=== PATIENT | male | born 1940 | race Caucasian/White ===

== ENCOUNTER 2017-04-12 20:44 | Emergency (ER) | payer MEDICARE, BC ==
[~2017-04-12] VITALS: Ht 185.4 cm; Wt 108.9 kg
[2017-04-12] MEDS ORDERED: ATOR1TAB19 PO (21:02)
[2017-04-12] MEDS ORDERED: LOSA50TA20 PO (21:02)
[2017-04-12] MEDS ORDERED: FLOM5CAP PO (21:02)
[2017-04-12] MEDS ORDERED: BISO10TA PO (21:02)
[2017-04-12] MEDS ORDERED: ASPI81TA85 PO (21:02)
[2017-04-12] MEDS ORDERED: DUTA1CAP PO (21:02)
[2017-04-12] MEDS ORDERED: ASPIRIN 325 MG TAB PO ONE (21:30)
[2017-04-12] MEDS ORDERED: LEVALBUTEROL 1.25 MG/0.5 ML CONCENTRATE NEB INH SCH (21:45)
[2017-04-12] MEDS ORDERED: dexameTHASONE 20 MG/5 ML VIAL (J1100) IV ONE (21:45)
[2017-04-12 21:59] LABS: BASO # 0.1 K/mm3 (0.0-0.2); BASO % 1.2 % (0.0-1.0); EOS # 0.4 K/mm3 (0.0-0.50); EOS % 6.2 % (0.0-3.0); LARGE UNSTAINED CELL # 0.1 K/mm3 (0.0-0.4); LARGE UNSTAINED CELL % 1.6 % (0.0-4.0); LYMPH # 1.8 K/mm3 (1.5-4.5); LYMPH % 29.7 % (24.0-44.0); MEAN CORPUSCULAR HGB CONC 33.7 g/dl (32.0-36.5); MONO # 0.4 K/mm3 (0.0-0.8); MONO % 6.8 % (0.0-5.0); NEUTROPHILS # 3.2 K/mm3 (1.8-7.7); NEUTROPHILS % 54.5 % (36.0-66.0); PLATELET COUNT, AUTOMATED 208 k/mm3 (150-450); RED CELL DISTRIBUTION WIDTH 13.3 % (11.5-14.5); WHITE BLOOD COUNT 5.8 K/mm3 (4.0-10.0)
[2017-04-12 22:09] LABS: ANION GAP 6 MEQ/L (8-16); BLOOD UREA NITROGEN 17 MG/DL (7-18); CALCIUM LEVEL 9.1 MG/DL (8.8-10.2); CARBON DIOXIDE LEVEL 27 MEQ/L (21-32); CHLORIDE LEVEL 109 MEQ/L (98-107); CREATININE FOR GFR 0.92 MG/DL (0.70-1.30); GLOMERULAR FILTRATION RATE > 60.0 (>42); GLUCOSE, FASTING 141 MG/DL (83-110); INR 0.87; POTASSIUM SERUM 3.7 MEQ/L (3.5-5.1); SODIUM LEVEL 142 MEQ/L (136-145)
[2017-04-12] MEDS ORDERED: NS 500 ML IV ONE (22:15)
--- NOTE | 2017-04-12 22:30 | REPUSA ---
Clinical history: Pain, swelling. Findings: The right common femoral, superficial femoral, popliteal, and other deep venous structures compress normally and demonstrate normal color Doppler flow. Normal venous waveforms with augmentatio n are seen. Impression: No evidence of deep vein thrombosis in the right femoral popliteal venous system.
[2017-04-12] MEDS ORDERED: ISOVUE-370 76% 100ML VIAL (Q9967) As Ordered ONE (22:50)
--- NOTE | 2017-04-12 23:30 | REPUSA ---
CT angiogram of the chest Clinical statement: dyspnea. Technique: Multiple axial CT images were obtained from the thoracic inlet through the upper abdomen a fter a bolus administration of nonionic intravenous contrast. Coronal and sagittal reconstructions we re also obtained. Comparison: 05/19/2015. Findings: The pulmonary arteries are well-opacified with contrast, with no intraluminal filling defec ts to suggest embolism. The thoracic aorta is unremarkable. Thyroid gland is within normal limits. Th ere is moderate mediastinal thoracic lymphadenopathy. For example, a right carinal lymph node measure s 2.7 x 1.3 c. The dominant right hilar lymph node measures 2.8 x 2.0 cm. There are no pericardial or pleural effusions. The lungs are clear. Limited imaging of the upper abdomen is unremarkable. There are no suspicious osseous lesions. Impression: 1. No evidence of pulmonary embolism. 2. No focal acute infiltrates. 3. Moderate mediastinal and right hilar lymphadenopathy.
[2017-04-13] MEDS ORDERED: PRED20TA PO (01:20)
[2017-04-13 01:39] VITALS: BP 151/89
--- NOTE | 2017-04-13 08:35 | REP ---
Clinical: Chest pain . Comparison: 06/23/2013 . Findings: The mediastinum and cardiac silhouette are stable and within normal limits for portable technique. The lung robin are clear without acute consolidation, effusion, or pneumothorax. Skeletal structures are intact. Impression: No focal consolidation. Signed by Diaz Gómez MD 04/13/2017 08:27 A
--- NOTE | 2017-04-13 09:29 | ECGEPIP ---
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
--- NOTE | 2017-04-13 09:31 | ECGEPIP ---
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
--- NOTE | 2017-04-16 09:49 | ED PDOC ---
Post-Departure Follow-Up dr chan faxed formal report of cta for fu Qing Cabrera MD April 16, 2017 09:48
== END 2017-04-13 01:40 | disposition home or self-care (01) ==
LOC: M ED 21:31
DX: R06.00 Dyspnea, unspecified (principal); B44.81 Allergic bronchopulmonary aspergillosis; I10 Essential (primary) hypertension; I25.10 Atherosclerotic heart disease of native coronary artery without angina pectoris; E78.5 Hyperlipidemia, unspecified; N40.0 Benign prostatic hyperplasia without lower urinary tract symptoms; Z86.718 Personal history of other venous thrombosis and embolism; Z95.5 Presence of coronary angioplasty implant and graft; Z79.82 Long term (current) use of aspirin; Z79.899 Other long term (current) drug therapy; Z88.8 Allergy status to other drugs, medicaments and biological substances
CPT/HCPCS: 36415; 71010; 71275; 80048; 82550; 82553; 84484; 85025; 85610; 85730; 93005; 93971; 94640; 96374; 99285; J1100; Q9967

== ENCOUNTER → 2017-04-29 | Outpatient (CLI) | payer MEDICARE, BC ==
[~2017-04-29] MED LIST: ASPI81TA85 PO; ATOR1TAB19 PO; BISO10TA PO; DUTA1CAP PO; FLOM5CAP PO; LOSA50TA20 PO; PRED20TA PO
[2017-04-29 12:04] LABS: MEAN CORPUSCULAR HEMOGLOBIN 32.7 pg (27.0-33.0); MEAN CORPUSCULAR HGB CONC 33.5 g/dl (32.0-36.5); MEAN CORPUSCULAR VOLUME 97.8 fl (80.0-96.0); RED CELL DISTRIBUTION WIDTH 13.6 % (11.5-14.5); WHITE BLOOD COUNT 6.9 K/mm3 (4.0-10.0)
[2017-04-29 12:06] LABS: ANION GAP 5 MEQ/L (8-16); BLOOD UREA NITROGEN 16 MG/DL (7-18); CALCIUM LEVEL 9.3 MG/DL (8.8-10.2); CARBON DIOXIDE LEVEL 29 MEQ/L (21-32); CHLORIDE LEVEL 104 MEQ/L (98-107); CREATININE FOR GFR 1.01 MG/DL (0.70-1.30); GLOMERULAR FILTRATION RATE > 60.0 (>42); GLUCOSE, FASTING 121 MG/DL (83-110); POTASSIUM SERUM 4.3 MEQ/L (3.5-5.1); SODIUM LEVEL 138 MEQ/L (136-145)
== END ==
LOC: M SMT 09:00
PROVIDERS: ATTEND Internal Medicine Cardiovascular Disease
DX: I82.409 Acute embolism and thrombosis of unspecified deep veins of unspecified lower extremity (principal)

== ENCOUNTER → 2018-05-18 | Outpatient (CLI) | payer MEDICARE, BC ==
[~2018-05-18] MED LIST changes: -ASPI81TA85 PO; -ATOR1TAB19 PO; -BISO10TA PO; -DUTA1CAP PO; -FLOM5CAP PO; +ISOVUE-370 76% 100ML VIAL (Q9967) As Ordered; -LOSA50TA20 PO; -PRED20TA PO
== END ==
LOC: M RAD 13:13
DX: N28.1 Cyst of kidney, acquired (principal); N40.0 Benign prostatic hyperplasia without lower urinary tract symptoms; K80.20 Calculus of gallbladder without cholecystitis without obstruction; K57.30 Diverticulosis of large intestine without perforation or abscess without bleeding
CPT/HCPCS: Q9967

== ENCOUNTER → 2018-07-07 | Outpatient (CLI) | payer MEDICARE, BC | LOC: M SMT 11:32 | DX: J47.9 Bronchiectasis, uncomplicated (principal) | CPT/HCPCS: 71046 ==

== ENCOUNTER 2019-06-09 22:21 | Observation (INO) | payer MEDICARE, BC ==
[~2019-06-09] VITALS: Ht 182.9 cm; Wt 103.3 kg
[~2019-06-09 22:21] MED LIST changes: +ASPI81TA85 PO; +ATOR1TAB19 PO; +BISO10TA13 PO; +DUTA1CAP PO; +FLOM0.4C39 PO; -ISOVUE-370 76% 100ML VIAL (Q9967) As Ordered; +LOSA50TA88 PO; +PRED20TA PO
[2019-06-09] MEDS ORDERED: MORPHINE 4 MG/ML 1ML VIAL/SYRINGE (J2270) As Ordered ONE (22:34)
[2019-06-09] MEDS ORDERED: ONDANSETRON 4MG/2ML VIAL (J2405) As Ordered ONE (22:34)
[2019-06-09] MEDS ORDERED: MORPHINE 4 MG/ML 1ML VIAL/SYRINGE (J2270) IV ONE (22:45)
[2019-06-09] MEDS ORDERED: ONDANSETRON 4MG/2ML VIAL (J2405) IV ONE (22:45)
[2019-06-09 23:02] LABS: BASO # 0.1 10^3/uL (0.0-0.2); BASO % 0.7 % (0.0-1.0); EOS # 0.2 10^3/uL (0.0-0.50); EOS % 2.5 % (0.0-3.0); HEMATOCRIT 45.2 % (42.0-52.0); HEMOGLOBIN 15.2 g/dl (13.5-17.5); LYMPH # 1.2 10^3/uL (1.5-4.5); LYMPH % 13.9 % (24.0-44.0); MEAN CORPUSCULAR HGB CONC 33.6 g/dl (32.0-36.5); MEAN CORPUSCULAR VOLUME 95.2 fl (80.0-96.0); MONO # 0.7 10^3/uL (0.0-0.8); MONO % 7.8 % (0.0-5.0); NEUTROPHILS # 6.7 10^3/uL (1.8-7.7); NEUTROPHILS % 74.8 % (36.0-66.0); PLATELET COUNT, AUTOMATED 188 10^3/uL (150-450); RED BLOOD COUNT 4.75 10^6/uL (4.30-6.10); WHITE BLOOD COUNT 8.9 10^3/uL (4.0-10.0)
[2019-06-09 23:26] LABS: INR 1.35; PROTHROMBIN TIME 16.4 SECONDS (11.8-14.0)
[2019-06-09 23:34] LABS: BLOOD UREA NITROGEN 19 MG/DL (7-18); CALCIUM LEVEL 8.6 MG/DL (8.8-10.2); CARBON DIOXIDE LEVEL 25 MEQ/L (21-32); CHLORIDE LEVEL 107 MEQ/L (98-107); CPK CREATINE PHOSPHOKINASE 88 U/L (39-308); CREATININE FOR GFR 0.95 MG/DL (0.70-1.30); GLOMERULAR FILTRATION RATE > 60.0 (>42); GLUCOSE, FASTING 161 MG/DL (70-100); POTASSIUM SERUM 4.3 MEQ/L (3.5-5.1); SODIUM LEVEL 139 MEQ/L (136-145)
--- NOTE | 2019-06-10 00:03 | REPVR ---
EXAM: CT Head Without Contrast EXAM DATE/TIME: 06/09/2019 10:53 PM CLINICAL HISTORY: 78 years old, male; Injury or trauma; Fall; Initial encounter; Concussion / head injury; Additional info: Fall on xarelto TECHNIQUE: Imaging protocol: Computed tomography images of the head without contrast. Radiation optimization: All CT scans at this facility use at least one of these dose optimization techniques: automated exposure control; mA and/or kV adjustment per patient size (includes targeted exams where dose is matched to clinical indication); or iterative reconstruction. COMPARISON: No relevant prior studies available. FINDINGS: Brain: No intracranial mass, mass effect or midline shift. No acute intracranial hemorrhage. No CT evidence of acute cortical infarct. Ventricles: Ventricles, cisterns, and sulci are normal in size for age. Bones/joints: No calvarial fracture or destructive process. Sinuses: Frontal and ethmoid sinus mucosal thickening is present. Mastoid air cells: Mastoid air cells are normally aerated. Orbits: Imaged orbits are unremarkable. Soft tissues: No focal extracranial soft tissue swelling. IMPRESSION: No acute or concerning focal intracranial abnormality. Electronically signed by: Domingo Mcclelland On 06/10/2019 00:03:46 AM
--- NOTE | 2019-06-10 00:08 | REPVR ---
EXAM: CT Cervical Spine Without Contrast EXAM DATE/TIME: 06/09/2019 10:53 PM CLINICAL HISTORY: 78 years old, male; Injury or trauma; Fall; Initial encounter; Concussion /head injury; Additional info: Fall on xarelto TECHNIQUE: Imaging protocol: Computed tomography images of the cervical spine without contrast. Coronal and sagittal reformatted images were created and reviewed. Radiation optimization: All CT scans at this facility use at least one of these dose optimization techniques: automated exposure control; mA and/or kV adjustment per patient size (includes targeted exams where dose is matched to clinical indication); or iterative reconstruction. COMPARISON: No relevant prior studies available. FINDINGS: No traumatic segmental malalignment of cervical spine or craniocervical junction. Vertebral body height is maintained at all levels. No acute fracture. No destructive or blastic cervical spine osseous lesion. Intravertebral disc height is decreased at multiple levels, with typical degenerative pattern and associated endplate, articular pillar and uncovertebral spurs. Prevertebral soft tissues demonstrate no asymmetry. No concerning abnormality of the imaged lung apices. IMPRESSION: No acute fracture or traumatic subluxation of the cervical spine. 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 Electronically signed by: Domingo Mcclelland On 06/10/2019 00:08:24 AM
[2019-06-10] MEDS ORDERED: MORPHINE 4 MG/ML 1ML VIAL/SYRINGE (J2270) IV ONE ×2 (00:15→08:15)
[2019-06-10] MEDS ORDERED: XARE20TA PO (01:05)
[2019-06-10 04:00] VITALS: BP 168/95
[2019-06-10] MEDS ORDERED: MORPHINE 4 MG/ML 1ML VIAL/SYRINGE (J2270) IV PRN (04:15)
[2019-06-10 06:00] VITALS: BP 145/79
--- NOTE | 2019-06-10 07:09 | REP ---
Right femur four views : There is no fracture or dislocation. Mineralization and joint spaces are normal. There are no calcifications or foreign bodies. There is a total knee arthroplasty with the, study applied and in satisfactory positions alignment. Impression: Negative right femur . Total knee arthroplasty. Electronically Signed by Anthony Castanon MD 06/10/2019 07:00 A
--- NOTE | 2019-06-10 07:10 | REP ---
Right knee four views: There is a total left knee arthroplasty. The components are tightly applied and in satisfactory positions alignment. There is a suprapatellar joint effusion. Electronically Signed by Anthony Castanon MD 06/10/2019 07:01 A
[2019-06-10] MEDS ORDERED: PERCOCET 5MG/325MG TAB PO PRN (08:15)
[2019-06-10] MEDS ORDERED: PERCOCET 5MG/325MG TAB PO ONE (08:15)
--- NOTE | 2019-06-10 08:26 | IPNPDOC ---
Date Seen The patient was seen on 06/10/19. Progress Note SUBJECTIVE: Pt was seen and examined at the bedside. He c/o 5/10 right knee pain due to recent fall. no fracture on xray. on AC due to h/o dvt/pe. no LE pallor, or decreased pulses overnight. on PRN iv morphine. pt says he slipped on the kitchen floor which he waxed with glade lemon kazakh, "trying to keep busy." OBJECTIVE PHYSICAL EXAMINATION: VITAL SIGNS: Please see below. GENERAL: AAOx3 no respiratory distress HEENT: no cyanosis or pallor. dry mucus membranes. has upper and lower dentures in no jvd no thyromegaly or cervical LAD CARDIOVASCULAR: S1S2 RRR RESPIRATORY: CTAB no wheezing or rales ABDOMINAL: (+) bs. soft nt nd no hsm no bruit EXTREMITIES: right knee swelling and tenderness without erythema well healed scar from prior arthroplasty. distal dp, pt pulses noted. no pallor. warm to touch. skin pink in color. LABORATORY DATA, IMAGING STUDIES, MICROBIOLOGY: Please see below. ASSESSMENT AND PLAN: 78 y/o male with past medical history significant for CAD,DVT/PE, coronary stents, HTN, dyslipidemia, BPH, pulmonary aspergillosis presented with hemarthrosis.pt says he slipped on the kitchen floor which he waxed with glade lemon kazakh, "trying to keep busy." Mechanical Fall at home -pt says he slipped on the kitchen floor which he waxed with glade lemon kazakh, "trying to keep busy." -no prodromal symptoms of lightheadedness, sob, palpitations, chest pain, pressure, dizzines, or near syncope or tightness -lives alone -Xray: no fracture of right knee -activity as tolerated with fall precautions -PT eval treat -ortho consulted -prn iv morphine and po percocet -tylenol tid Right knee hemarthrosis -due to mechanical fall at home while on xarelto -pt says he slipped on the kitchen floor which he waxed with glade lemon kaz[place], "trying to keep busy." -no prodromal symptoms of lightheadedness, sob, palpitations, chest pain, pressure, dizzines, or near syncope or tightness -lives alone -Xray: no fracture of right knee -activity as tolerated with fall precautions -PT eval treat -ortho consulted -prn iv morphine and po percocet -tylenol tid 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 disposition: await PT clearance. VS, I&O, 24H, Fishbone Vital Signs/I&O Vital Signs Date Time Temp Pulse Resp B/P (MAP) Pulse Ox O2 Delivery O2 Flow Rate FiO2 06/10/19 06:00 145/79 (101) 06/10/19 04:40 15 06/10/19 04:00 98.0 99 96 06/09/19 22:34 Room Air I&O- Last 24 Hours up to 6 AM 06/10/19 05:59 Intake Total 0 ml Output Total 0 ml Balance 0 ml Laboratory Data 24H LABS Laboratory Tests 2 06/09/19 22:51: Immature Granulocyte % (Auto) 0.3, White Blood Count 8.9, Red Blood Count 4.75, Hemoglobin 15.2, Hematocrit 45.2, Mean Corpuscular Volume 95.2, Mean Corpuscular Hemoglobin 32.0, Mean Corpuscular Hemoglobin Concent 33.6, Red Cell Distribution Width 13.7, Platelet Count 188, Neutrophils (%) (Auto) 74.8H, Lymphocytes (%) (Auto) 13.9L, Monocytes (%) (Auto) 7.8H, Eosinophils (%) (Auto) 2.5, Basophils (%) (Auto) 0.7, Neutrophils # (Auto) 6.7, Lymphocytes # (Auto) 1.2L, Monocytes # (Auto) 0.7, Eosinophils # (Auto) 0.2, Basophils # (Auto) 0.1, Nucleated Red Blood Cells % (auto) 0.0, Prothrombin Time 16.4H, Prothromb Time International Ratio 1.35, Activated Partial Thromboplast Time 36.0, Anion Gap 7L, Glomerular Filtration Rate > 60.0, Blood Urea Nitrogen 19H, Creatinine 0.95, Sodium Level 139, Potassium Level 4.3, Chloride Level 107, Carbon Dioxide Level 25, Calcium Level 8.6L, Total Creatine Kinase 88 CBC/BMP Laboratory Tests 06/09/19 22:51 Red Blood Count 4.75, Mean Corpuscular Volume 95.2, Mean Corpuscular Hemoglobin 32.0, Mean Corpuscular Hemoglobin Concent 33.6, Red Cell Distribution Width 13.7, Neutrophils (%) (Auto) 74.8 H, Lymphocytes (%) (Auto) 13.9 L, Monocytes (%) (Auto) 7.8 H, Eosinophils (%) (Auto) 2.5, Basophils (%) (Auto) 0.7, Neutrophils # (Auto) 6.7, Lymphocytes # (Auto) 1.2 L, Monocytes # (Auto) 0.7, Eosinophils # (Auto) 0.2, Basophils # (Auto) 0.1, Calcium Level 8.6 L AUBREY METZGER MD Jun 10, 2019 07:55
[2019-06-10 08:29] LABS: HEMATOCRIT 43.9 % (42.0-52.0); HEMOGLOBIN 14.3 g/dl (13.5-17.5); MEAN CORPUSCULAR HGB CONC 32.6 g/dl (32.0-36.5); PLATELET COUNT, AUTOMATED 180 10^3/uL (150-450); RED BLOOD COUNT 4.62 10^6/uL (4.30-6.10); WHITE BLOOD COUNT 7.9 10^3/uL (4.0-10.0)
--- NOTE | 2019-06-10 08:51 | HPEPDOC ---
General Date of Admission Jun 09, 2019 at 22:22 Date of Service: Jun 10, 2019 Chief Complaint The patient is a 78-year-old male admitted with a reason for visit of Hemarthrosis. Source: Patient History of Present Illness This is a 78 yo male with multiple phmx including multiple DVTs and PE on xeralto who slipped and fell in his home yesterday, unfortunately after shining the floor. He hit is right most worse than the left, no head trauma. He said after he felt it was difficult to get up, and it was very painful. He noticed his knee was rapidly swelling, he monitored it for a while, but then decided to come to the ed as the swelling and pain got worse. He lives alone and was in normal state of health prior ton the fall. He denied any fever, chills, decreased appetite, weight changes, mental status changes, palpitations, blurry vision, dizziness, decreased po intake, nausea, vomiting or diarrhea ROS all 14 point ros negative except for what s stated in HPI All vital signs, labs and images reviewed Physical exam Gen- NAD, normal body habitus HEENT- normocephalic, atraumatic, PERRLA, EOMI, normal conjunctiva, neck supple, no lymphadenopathy Cvs nondisplaced pmi, normal s1, s2 , no murmurs, rubs or gallops, no chest wall tenderness, no edema Resp no cough, LCTAB, no wheezes, rhonchi or crackles Abd normal bs, soft , nontender, nondistended, no organomegaly Msk - swelling localized to the right knee, without sign of brusing yet, but tender, limitied rom due to pain, no discoloration of lower extremity, dp pulse palpable, no swelling below the knee, no deformity, no atrophy Neuro no focal deficit , cn2-12 intact, strength 5/5 in all extremities except for the right leg due to pain , AOA x3 Psych- cooperative , normal mood and judgement , good insight. ASSESSMENT And Plan right knee supra-patellar effusion s/p a fall likely hemarthrosis - hold xeralto - monitor for continuous bleed and compartment syndrome or any sign of ischemia -prn pain meds - ortho consult - rehab pt consult -avoid nsaids, AC and Antiplt -for now chronic conditions -bph//htn//cad s/p 3 stents (last placement greater than 1 yr ago)// multiple dvts and PE - c/w meds except for AC and antiplt dvt ppx- scd if tolerable - or maybe just on the left full code, from home, no svc Home Medications Scheduled Atorvastatin Calcium (Atorvastatin Calcium) 10 Mg Tab, 10 MG PO DAILY, (Reported) Bisoprolol Fumarate (Bisoprolol Fumarate) 10 Mg Tab, 10 MG PO DAILY, (Reported) Dutasteride (Dutasteride) 0.5 Mg Cap, 0.5 MG PO DAILY, (Reported) Losartan Potassium (Losartan Potassium) 50 Mg Tab, 50 MG PO DAILY, (Reported) Rivaroxaban (Xarelto) 20 Mg Tablet, 20 MG PO DAILY, (Reported) Tamsulosin HCl (Flomax) 0.4 Mg Cap, 0.8 MG PO DAILY, (Reported) Allergies Coded Allergies: itraconazole (Verified Allergy, Unknown, 06/09/19) Past Medical History Medical History htn cad s/p 3 stents - last one >1 yr ago DVT - multiple PE BPH Surgical History right total knee replacement Family History Significant Family History: No pertinent family hx Social History * Smoker: quit greater than 1 year Alcohol: occationally Drugs: denies Psychosocial History: No pertinent psych hx usually fully functional, lives alone A-FIB/CHADSVASC A-FIB History Current/History of A-Fib/PAF?: No Current PO Anticoag Therapy: Yes Age/Risk Factor Scoring CHADSVASC: CHADSVASC Response (Comments) Value Age Risk Factor Age 65-74 years old 1 Gender Risk Factor Male 0 Hx of CHF No 0 Hx of HTN Yes 1 Hx of Stroke/TIA/or VTE No 0 Hx of Diabetes No 0 Hx of Vascular Disease No 0 Total 2 Treatment Treatment ordered: Rivaroxaban Reason Anticoagulant not given: Current bleeding Vital Signs Vital Signs Date Time Temp Pulse Resp B/P (MAP) Pulse Ox O2 Delivery O2 Flow Rate FiO2 06/10/19 06:00 145/79 (101) 06/10/19 04:40 15 06/10/19 04:00 98.0 99 96 06/09/19 22:34 Room Air Laboratory Data Labs 24H Laboratory Tests 2 06/09/19 22:51: Immature Granulocyte % (Auto) 0.3, White Blood Count 8.9, Red Blood Count 4.75, Hemoglobin 15.2, Hematocrit 45.2, Mean Corpuscular Volume 95.2, Mean Corpuscular Hemoglobin 32.0, Mean Corpuscular Hemoglobin Concent 33.6, Red Cell Distribution Width 13.7, Platelet Count 188, Neutrophils (%) (Auto) 74.8H, Lymphocytes (%) (Auto) 13.9L, Monocytes (%) (Auto) 7.8H, Eosinophils (%) (Auto) 2.5, Basophils (%) (Auto) 0.7, Neutrophils # (Auto) 6.7, Lymphocytes # (Auto) 1.2L, Monocytes # (Auto) 0.7, Eosinophils # (Auto) 0.2, Basophils # (Auto) 0.1, Nucleated Red Blood Cells % (auto) 0.0, Prothrombin Time 16.4H, Prothromb Time International Ratio 1.35, Activated Partial Thromboplast Time 36.0, Anion Gap 7L, Glomerular Filtration Rate > 60.0, Blood Urea Nitrogen 19H, Creatinine 0.95, Sodium Level 139, Potassium Level 4.3, Chloride Level 107, Carbon Dioxide Level 25, Calcium Level 8.6L, Total Creatine Kinase 88 CBC/BMP Laboratory Tests 06/09/19 22:51 Red Blood Count 4.75, Mean Corpuscular Volume 95.2, Mean Corpuscular Hemoglobin 32.0, Mean Corpuscular Hemoglobin Concent 33.6, Red Cell Distribution Width 13.7, Neutrophils (%) (Auto) 74.8 H, Lymphocytes (%) (Auto) 13.9 L, Monocytes (%) (Auto) 7.8 H, Eosinophils (%) (Auto) 2.5, Basophils (%) (Auto) 0.7, Neutrophils # (Auto) 6.7, Lymphocytes # (Auto) 1.2 L, Monocytes # (Auto) 0.7, Eosinophils # (Auto) 0.2, Basophils # (Auto) 0.1, Calcium Level 8.6 L Plan / VTE VTE Prophylaxis Ordered?: No VTE Exclusion Pharmacological: Active Bleeding GERMAIN HARRIS MD Jun 10, 2019 08:51
[2019-06-10] MEDS: ATORVASTATIN 10 MG TAB PO SCH (09:23)
[2019-06-10] MEDS: ACETAMINOPHEN TAB 650MG DOSE (2X325MG) PO SCH ×3 (09:23→20:03)
[2019-06-10] MEDS: LOSARTAN 50 MG TAB PO SCH (09:23)
[2019-06-10] MEDS: TAMSULOSIN 0.4 MG CAP PO SCH (09:27)
--- NOTE | 2019-06-10 10:29 | REP ---
Bilateral lower extremity Duplex Doppler venous ultrasound: Real time compression and duplex Doppler interrogation of the bilateral lower extremity deep venous system is performed. Bilaterally, the common femoral, superficial femoral and popliteal veins are fully compressible with transducer pressure and demonstrate normal spontaneous and phasic flow, without evidence of deep venous thrombosis. Impression: No evidence of deep venous thrombosis of the bilateral lower extremity femoral popliteal venous system. Electronically Signed by Anthony Aguilera MD 06/10/2019 10:20 A
[2019-06-10 14:00] VITALS: BP 131/86
[2019-06-10] MEDS: PERCOCET 5MG/325MG TAB PO PRN ×2 (15:36→22:20)
[2019-06-10 22:00] VITALS: BP 133/82
[2019-06-11] MEDS: PERCOCET 5MG/325MG TAB PO PRN (05:56)
[2019-06-11 06:00] VITALS: BP 141/87
[2019-06-11 06:34] LABS: HEMATOCRIT 39.8 % (42.0-52.0); MEAN CORPUSCULAR HEMOGLOBIN 31.1 pg (27.0-33.0); MEAN CORPUSCULAR HGB CONC 32.7 g/dl (32.0-36.5); MEAN CORPUSCULAR VOLUME 95.2 fl (80.0-96.0); PLATELET COUNT, AUTOMATED 165 10^3/uL (150-450); RED BLOOD COUNT 4.18 10^6/uL (4.30-6.10); WHITE BLOOD COUNT 6.6 10^3/uL (4.0-10.0)
[2019-06-11 09:02] VITALS: BP 141/87
[2019-06-11] MEDS: LOSARTAN 50 MG TAB PO SCH (09:02)
[2019-06-11] MEDS: ATORVASTATIN 10 MG TAB PO SCH (09:02)
[2019-06-11] MEDS: ACETAMINOPHEN TAB 650MG DOSE (2X325MG) PO SCH (09:02)
[2019-06-11] MEDS: TAMSULOSIN 0.4 MG CAP PO SCH (09:02)
[2019-06-11] MEDS ORDERED: PERC5TAB12 PO (10:33)
[2019-06-11] MEDS ORDERED: OXYC1TAB23 PO (10:36)
--- NOTE | 2019-06-11 12:33 | DS.PDOC ---
Discharge Summary General Date of Admission Jun 09, 2019 at 22:22 Date of Discharge June 11, 2019 Discharge Summary DISCHARGE DIAGNOSES: Mechanical Fall at home Right knee hemarthrosis H/O DVT/PE CAD stents HTN Dyslipidemia BPH HISTORY of Pulmonary aspergillosis DISCHARGE MEDICATIONS: PLS SEE BELOW DISCHARGE INSTRUCTIONS: FU APPT W PCP AND ORTHO WITHIN 7 DAYS OF DISCHARGE CALL YOUR DOCTOR IF INCREASING PAIN OR RECURRENT BLEEDING. HISTORY OF PRESENTING ILLNESS: 78 y/o male with past medical history significant for CAD,DVT/PE, coronary stents, HTN, dyslipidemia, BPH, pulmonary aspergillosis presented with hemarthrosis.pt says he slipped on the kitchen floor which he waxed with glade lemon [place], "trying to keep busy." HOSPITAL COURSE: Mechanical Fall at home -pt says he slipped on the kitchen floor which he waxed with glade lemon [place], "trying to keep busy." -no prodromal symptoms of lightheadedness, sob, palpitations, chest pain, pressure, dizzines, or near syncope or tightness -lives alone -Xray: no fracture of right knee -activity as tolerated with fall precautions -PT eval treat -ortho consulted-no intervention per Dr. Vega, and may resume anticoagulant at discharge. 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 DISCHARGE PHYSICAL EXAMINATION: VITAL SIGNS: Please see below. GENERAL: AAOx3 no respiratory distress HEENT: no cyanosis or pallor. dry mucus membranes. has upper and lower dentures in no jvd no thyromegaly or cervical LAD CARDIOVASCULAR: S1S2 RRR RESPIRATORY: CTAB no wheezing or rales ABDOMINAL: (+) bs. soft nt nd no hsm no bruit EXTREMITIES: right knee swelling and tenderness without erythema well healed scar from prior arthroplasty. distal dp, pt pulses noted. no pallor. warm to touch. skin pink in color. LABORATORY DATA, IMAGING STUDIES, MICROBIOLOGY: Please see below. TIME SPENT ON DISCHARGE: 32 MINUTES Vital Signs/I&Os Vital Signs Date Time Temp Pulse Resp B/P (MAP) Pulse Ox O2 Delivery O2 Flow Rate FiO2 06/11/19 11:48 16 06/11/19 09:02 141/87 06/11/19 06:00 97.7 79 96 06/09/19 22:34 Room Air I&O- Last 24 Hours up to 6 AM 06/11/19 06:00 Intake Total 2320 ml Output Total 0 ml Balance 2320 ml Laboratory Data Labs 24H Laboratory Tests 2 06/11/19 05:52: Nucleated Red Blood Cells % (auto) 0.0 CBC/BMP Laboratory Tests 06/11/19 05:52 Red Blood Count 4.18 L, Mean Corpuscular Volume 95.2, Mean Corpuscular Hemoglobin 31.1, Mean Corpuscular Hemoglobin Concent 32.7, Red Cell Distribution Width 13.8 Discharge Medications Scheduled Atorvastatin Calcium (Atorvastatin Calcium) 10 Mg Tab, 10 MG PO DAILY, (Reported) Bisoprolol Fumarate (Bisoprolol Fumarate) 10 Mg Tab, 10 MG PO DAILY, (Reported) Dutasteride (Dutasteride) 0.5 Mg Cap, 0.5 MG PO DAILY, (Reported) Losartan Potassium (Losartan Potassium) 50 Mg Tab, 50 MG PO DAILY, (Reported) Rivaroxaban (Xarelto) 20 Mg Tablet, 20 MG PO DAILY, (Reported) Tamsulosin HCl (Flomax) 0.4 Mg Cap, 0.8 MG PO DAILY, (Reported) Scheduled PRN Oxycodone HCl/Acetaminophen (Oxycodone-Acetaminophen 5-325) 1 Each Tablet, 1 TAB PO Q4HP PRN for pain Allergies Coded Allergies: itraconazole (Verified Allergy, Unknown, 06/09/19) AUBREY METZGER MD Jun 11, 2019 12:33
--- NOTE | 2019-06-17 10:45 | CR ---
DATE OF CONSULTATION: 06/09/2019 REQUESTING PROVIDER: Marian Eddy MD CHIEF COMPLAINT: Right knee pain. HISTORY: This is a 78-year-old gentleman who has multiple medical problems who fell the day prior to being seen on the injuring his right knee. He has knee replaced in [place]. He says he has had a fair amount of pain and swelling and was admitted to the hospital due to difficulties getting up and around. PAST MEDICAL HISTORY: Notable for: 1. Hypertension. 2. Coronary artery disease. 3. Deep vein thrombosis (DVT)/pulmonary embolism (PE). 4. Benign prostatic hypertrophy (BPH). MEDICATIONS: Include: - atorvastatin - bisoprolol - dutasteride - losartan - Xarelto - Flomax ALLERGIES: 1. ITRACONAZOLE. REVIEW OF SYSTEMS: Otherwise, unremarkable. FAMILY HISTORY: Noncontributory. PHYSICAL EXAMINATION: He is alert, oriented no acute distress. HEENT: Extraocular muscles intact. Pharynx benign. Regular rate and rhythm to his pulse. Nonlabored breathing. Abdomen soft, nontender. Right knee demonstrates very mild swelling. No redness. No sign of infection, but is somewhat tender along the medial aspect. He has range of motion roughly 0 to 90 degrees. He is grossly neurologically intact distally. Radiographs reviewed at [facility]. They demonstrated no clear evidence of any fracture. His prosthesis seems well seated. IMPRESSION: Right knee pain after knee replacement status post a fall when he slipped on a waxed floor at home. No clear evidence of fracture. I think this is mostly a contusion. He had some hemarthrosis, possibly partially due to the Xarelto use. RECOMMENDATIONS: Just conservative management. I think he can weight bear as tolerated within comfort range. Otherwise, he would need a walker to get around and be partial weightbearing until he can do this. We will see him back in the office after he is discharged for reevaluation to make sure he is doing okay. Thank you for the consult.
== END 2019-06-11 12:25 | disposition home health service (06) ==
LOC: M ED 22:21 → M ED INP 22:22 → M MS5PR 06-10 03:48
PROVIDERS: ADMIT Internal Medicine; ATTEND Internal Medicine
DX: M25.061 Hemarthrosis, right knee (principal); W01.0XXA Fall on same level from slipping, tripping and stumbling without subsequent striking against object, initial encounter; Y92.000 Kitchen of unspecified non-institutional (private) residence as the place of occurrence of the external cause; Y99.9 Unspecified external cause status; Y93.9 Activity, unspecified; I25.10 Atherosclerotic heart disease of native coronary artery without angina pectoris; I10 Essential (primary) hypertension; E78.5 Hyperlipidemia, unspecified; N40.0 Benign prostatic hyperplasia without lower urinary tract symptoms; Z87.09 Personal history of other diseases of the respiratory system; Z86.711 Personal history of pulmonary embolism; Z79.01 Long term (current) use of anticoagulants; Z79.899 Other long term (current) drug therapy; Z88.8 Allergy status to other drugs, medicaments and biological substances; Z87.891 Personal history of nicotine dependence; Z95.1 Presence of aortocoronary bypass graft
CPT/HCPCS: 36415; 70450; 72125; 73552; 73564; 80048; 82550; 85025; 85027; 85610; 85730; 93970; 96374; 96375; 96376; 97116; 97161; 97165; 97530; 99285; G0378; J2270; J2405

== ENCOUNTER → 2019-07-01 | Outpatient (REF) | payer MEDICARE, BC ==
[~2019-07-01] MED LIST changes: +OXYC1TAB23 PO; +PERC5TAB12 PO; +XARE20TA PO
== END ==
LOC: M LAB REF 13:40
PROVIDERS: ATTEND Physician Assistant
DX: N39.0 Urinary tract infection, site not specified (principal)

== ENCOUNTER → 2019-07-14 | Outpatient (CLI) | payer MEDICARE, BC ==
--- NOTE | 2019-07-14 12:10 | REP ---
PA and lateral chest: Comparison is 2017. The lung robin are clear. The cardiac size is normal. The aj, mediastinum, and skeletal structures are unremarkable. Impression: Negative PA and lateral chest. There is no interval change. Electronically Signed by Anthony Castanon MD 07/14/2019 09:54 A
== END ==
LOC: M SMT 08:19
PROVIDERS: ATTEND Internal Medicine Pulmonary Disease
DX: J47.9 Bronchiectasis, uncomplicated (principal)

== ENCOUNTER → 2019-07-27 | Outpatient (REF) | payer MEDICARE, BC ==
[2019-07-27 18:19] LABS: APPEARANCE, URINE TURBID (CLEAR); BACTERIA, URINE AUTO 2+ (NEGATIVE); BILIRUBIN, URINE AUTO NEGATIVE (NEGATIVE); BLOOD, URINE BLOOD 2+ (NEGATIVE); COLOR, URINE AMBER (YELLOW); GLUCOSE, URINE (UA) AUTO NEGATIVE (NEGATIVE); KETONE, URINE AUTO NEGATIVE (NEGATIVE); LEUKOCYTE ESTERASE, URINE AUTO 3+ (NEGATIVE); NITRITE, URINE AUTO POSITIVE (NEGATIVE); PROTEIN, URINE AUTO 1+ mg/dL (NEGATIVE); RBC, URINE AUTO 49 /HPF (0-3); SPECIFIC GRAVITY URINE AUTO 1.011 (1.002-1.035); SQUAMOUS EPITHELIAL CELL UR AU 0 /HPF (0-6); UROBILINOGEN, URINE AUTO 0.2 mg/dL (0.0-2.0); WBC, URINE AUTO TNTC /HPF (0-3)
== END ==
LOC: M LAB REF 17:24 → EEVIPCON 17:24
PROVIDERS: ATTEND Physician Assistant Medical
DX: N39.0 Urinary tract infection, site not specified (principal)

== ENCOUNTER → 2020-06-29 | Outpatient (CLI) | payer MEDICARE, BC ==
[~2020-06-29] MED LIST changes: -ASPI81TA85 PO; +ASPI81TA86 PO; -DUTA1CAP PO; +DUTA1CAP2 PO
--- NOTE | 2020-08-10 09:56 | REP ---
CHEST COMPARISON: 07/14/2019 as well as other prior examinations. HISTORY: Bronchiectasis; other poor read. TECHNIQUE: Two views of the chest were performed. FINDINGS: I see no significant change when compared to the prior study. There is no acute infiltrate. Lungs are essentially clear. Heart is normal in size. There is some calcification and tortuosity of the thoracic aorta. The mediastinal silhouette is unchanged. There are mild degenerative changes of the spine. IMPRESSION: No active pulmonary disease. No change since prior study. MTDD
== END ==
LOC: M RAD 08:37
PROVIDERS: ATTEND Internal Medicine Pulmonary Disease
DX: J47.9 Bronchiectasis, uncomplicated (principal)